=== PATIENT | female | born 1995 | race Caucasian/White ===

== ENCOUNTER 2024-08-09 12:51 | Inpatient (IN) | payer BC ==
[2024-08-09] VITALS (37 sets, daily range): BP systolic 91–152; BP diastolic 47–96; PULSE 69–125; TEMP 98–99.5
[~2024-08-09] VITALS: Ht 152.4 cm; Wt 64.1 kg
[2024-08-09] MEDS ORDERED: PRENATA1 CTB PO (13:43)
[2024-08-09] MEDS ORDERED: LR 1,000 ML IV SCH (13:45)
[2024-08-09 14:19] LABS: BASO % 0.2 % (0.0-2.0); EOS % 0.2 % (0.0-4.0); GRAN # 11.2 K/mm3 (1.4-6.5); HEMOGLOBIN 16.1 g/dl (12.5-16.0); LYMPH % 7.4 % (20.0-51.0); MEAN CELL VOLUME 92 fl (80.0-100.0); MEAN CORPUSCULAR HEMOGLOBIN 33 pg (27-31); MEAN CORPUSCULAR HGB CONC 36 g/dl (33.0-37.0); MEAN PLATELET VOLUME 12.1 fl (7.4-10.4); MONO # 0.6 K/mm3 (0.1-0.6); MONO % 4.5 % (1.7-9.3); PLATELET COUNT 140 K/mm3 (130-400); RED BLOOD COUNT 4.89 M/mm3 (4.10-5.30); REDCELL DISTRIBUTION WIDTH-CV 12.2 % (11.5-14.5)
[2024-08-09] MEDS ORDERED: ROPivacaine PF 0.2% 200 ML IV ONE (14:34)
--- NOTE | 2024-08-09 14:35 | NUR ---
PT SITTING UPRIGHT ON SIDE OF BED. CARLOS AT BEDSIDE. EFM CAT 1, VS STABLE, LR BOLUS INFUSING, PULSE OX IN PLACE. 1454 TEST DOSE PER CARLOS, MODULAR SET CREW MEMBER 1500 PT RETURNED TO WL POSITION, VS STABLE, EFM CAT 1, PT COMFORTABLE.
[2024-08-09] MEDS ORDERED: diphenhydrAMINE 50 MG/ML 1 ML VIAL IV PRN (15:15)
[2024-08-09] MEDS ORDERED: Naloxone 0.4 MG/ML VIAL IV PRN ×2 (15:15→20:30)
[2024-08-09] MEDS ORDERED: diphenhydrAMINE 25 MG CAP PO PRN (15:15)
[2024-08-09] MEDS ORDERED: ePHEDrine 50 MG/10 ML VIAL IV PRN (15:15)
[2024-08-09] MEDS ORDERED: Ondansetron 4 MG/2 ML VIAL IV PRN ×2 (15:15→20:30)
--- NOTE | 2024-08-09 15:17 | NUR ---
1517 AT BEDSIDE FOR SVE AND AROM. PT LL, SVE /-1. AROM LARGE AMOUNT OF CLEAR FLUID. PT TOLERATED WELL.
[2024-08-09] MEDS ORDERED: NS 1,000 ML IV SCH (18:00)
--- NOTE | 2024-08-09 18:00 | NUR ---
DR. BREWER AT BEDSIDE FOR SVE 10/+1 WITH CTX. CAN START PUSHING.
--- NOTE | 2024-08-09 18:20 | NUR ---
here. Discusses pushing process, getting set up for delivery.
--- NOTE | 2024-08-09 18:23 | NUR ---
First push attempt with instruction by .
--- NOTE | 2024-08-09 18:25 | NUR ---
counsels patient on possibility of vacuum assist vs primary section. Potential risks of each explained. Patient and family allowed to ask questions. Verbalize understanding.
--- NOTE | 2024-08-09 18:32 | NUR ---
Pushing efforts ceased @ 1830 per 's instruction. Resting through contractions. Will attempt to get head to rotate with position changes. Note waiting for OR to be cleaned in case needed in emergency, as noted late decelerations with pushing efforts.
--- NOTE | 2024-08-09 18:33 | NUR ---
Wedged left. LR bolus begun. O2 on @ 10 L/min per simple face mask with explanation to patient and family.
--- NOTE | 2024-08-09 18:39 | NUR ---
Wedged further to left.
--- NOTE | 2024-08-09 18:41 | NUR ---
Repositioned left lateral with right leg up in stirrup.
--- NOTE | 2024-08-09 18:55 | NUR ---
Repositioned right lateral with left leg up in stirrup.
--- NOTE | 2024-08-09 18:58 | NUR ---
here. Push attempt with instruction.
--- NOTE | 2024-08-09 19:01 | NUR ---
Nursery and charge nurse at bedside in preparation for vaccuum assisted delivery. Team notified if this does not work, will proceed to primary section.
--- NOTE | 2024-08-09 19:02 | NUR ---
Wedged to left, as noted late decelerations.
--- NOTE | 2024-08-09 19:07 | NUR ---
Jacem placed by , no pressure applied.
--- NOTE | 2024-08-09 19:10 | NUR ---
Pressure applied to vaccuum in green zone by . Pull by with pushing efforts of patient through one contraction. Pop off noted with 3rd push attempt in contraction.
[2024-08-09] MEDS ORDERED: Chloroprocaine PF 3% (30 MG/ML) 20 ML VIAL ONE (19:11)
--- NOTE | 2024-08-09 19:12 | NUR ---
Pushes without assist of vaccuum through this contraction.
--- NOTE | 2024-08-09 19:14 | NUR ---
Decision by to proceed to primary section with explanation to patient. Patient agreeable to procedure, verbalizes understanding.
--- NOTE | 2024-08-09 19:18 | NUR ---
GWYN Valdovinos, here to dose for primary section.
--- NOTE | 2024-08-09 19:23 | NUR ---
To OR per bed.
--- NOTE | 2024-08-09 19:25 | NUR ---
Time-out completed.
[2024-08-09] MEDS ORDERED: NS 20 ML IV ONE (19:29)
[2024-08-09] MEDS ORDERED: Oxytocin 10 UNITS/ML VIAL ONE (19:29)
[2024-08-09] MEDS ORDERED: Tranexamic Acid 1,000 MG in NS 100 ML IV ONE (19:30)
[2024-08-09] MEDS ORDERED: Azithromycin 500 MG in NS 250 ML IV ONE (19:30)
--- NOTE | 2024-08-09 19:38 | NUR ---
Per 's order, this bid writer pushes head up out of pelvis under sterile gown in sterile fashion.
--- NOTE | 2024-08-09 19:52 | NUR ---
Fred cheung per 's verbal order. Expiration 09-27-2028. Lot #[id number]
[2024-08-09] MEDS ORDERED: Ketorolac 30 MG/ML VIAL ONE (19:59)
[2024-08-09] MEDS ORDERED: Ondansetron 4 MG/2 ML VIAL ONE (19:59)
[2024-08-09] MEDS ORDERED: EPINEPHrine 1 MG/1 ML Ampule ONE (19:59)
[2024-08-09] MEDS ORDERED: Phenylephrine 10 MG/ML VIAL ONE (19:59)
[2024-08-09] MEDS ORDERED: dexAMETHasone 10 MG/ML VIAL ONE (20:03)
--- NOTE | 2024-08-09 20:15 | NUR ---
GWYN Valdovinos, performs ultrasound guided TAP block with explanation to patient and spouse. Verbalize understanding. US prints on chart.
[2024-08-09] MEDS ORDERED: Acetaminophen 500 MG TAB PO PRN (20:30)
[2024-08-09] MEDS ORDERED: Measles/Mumps/Rubella Virus Vaccine Live w Diluent 0.5 ML VIAL SQ SCH (20:30)
[2024-08-09] MEDS ORDERED: Magnes Hydrox (MOM) 80 MG/ML 30 ML CUP PO PRN (20:30)
[2024-08-09] MEDS ORDERED: LR 1,000 ML IV PRN (20:30)
[2024-08-09] MEDS ORDERED: Loratadine 10 MG TAB PO PRN (20:30)
[2024-08-09] MEDS ORDERED: Tdap Vaccine 0.5 ML SYRINGE IM SCH (20:30)
[2024-08-09] MEDS ORDERED: oxyCODONE 5 MG TAB PO PRN (20:30)
[2024-08-09] MEDS ORDERED: traZODone 50 MG TAB PO PRN (21:00)
[2024-08-10 00:30] VITALS: BP 118/76; PULSE 57
[2024-08-10 02:14] VITALS: BP 115/77; PULSE 56; TEMP 98.8
[2024-08-10] MEDS ORDERED: Ibuprofen 800 MG TAB PO SCH (02:21)
--- NOTE | 2024-08-10 04:00 | NUR ---
Assisted out of bed for first time post surgery. Ambulates to bathroom with two assist. Steady, timid gait noted. Encouraged to stand tall. Denies any lightheadedness, dizziness, nausea. Joanne care provided. Mesh underwear and joanne pad applied after killian catheter removed. Abdominal binder applied for support. Ambulates very short distance out into hallway before requesting to return to bed. Will allow patient to have a break from SCDs at this time. Snack of jello provided per patient request.
[2024-08-10] MEDS ORDERED: Sennosides/Docusate 8.6-50 MG TAB PO SCH (08:00)
[2024-08-10] MEDS ORDERED: Rho(D) Imm Globulin 1,500 UNITS (300 MCG)/2 ML SYRINGE IV\\IM SCH (08:30)
[2024-08-10 08:51] VITALS: BP 102/73; PULSE 75; TEMP 98
--- NOTE | 2024-08-10 09:32 | NUR ---
Initial visit; Parents thanked [employer] for offering Congratulations and God's blessings for the of their daughter. [employer] thanked family for choosing [facility].
[2024-08-10 16:45] VITALS: BP 105/70; PULSE 89; TEMP 98
[2024-08-10 21:05] VITALS: BP 105/69; PULSE 87; TEMP 98.7
[2024-08-11 08:30] VITALS: BP 105/73; PULSE 72; TEMP 98.6
[2024-08-11] MEDS ORDERED: MOTRIN 800800 MG/TAB PO (09:14)
[2024-08-11] MEDS ORDERED: ROXICODONE 55 MG/TAB PO (09:15)
--- NOTE | 2024-08-11 12:02 | NUR ---
PT CALLS CONTACT WORKER LITHOGRAPHY LIGHT AND SPOUSE REPORTS PT C/O PAIN AND NOSE BLEED. THIS NURSE ENTERS ROOM, PT CRYING, BREATHING QUICKLY, AND SMALL AMOUNT OF BLOOD IN RIGHT NARE. PT'S SPOUSE REPORTS PT IS ANXIOUS FROM INCREASED PAIN TO LEFT SIDE. FUNDUS AND BLEEDING ASSESSED, WNL. PT REPORTS TAKING XANAX BEFORE . PHYSICIAN NOTIFIED OF PT'S CONDITION. ORDERS RECEIVED.
[2024-08-11] MEDS ORDERED: diphenhydrAMINE 25 MG CAP PO ONE (12:14)
[2024-08-11] MEDS ORDERED: hydrOXYzine HCl 25 MG TAB PO PRN (12:15)
[2024-08-11] MEDS ORDERED: diphenhydrAMINE 50 MG CAP PO PRN (12:15)
--- NOTE | 2024-08-11 12:15 | NUR ---
MEDICATIONS ADMINISTERED PER ORDERS. PT EXPRESSES CONCERN ABOUT NEEDING TO FEED BABY SOON. THIS NURSE ENCOURAGES PT TO TAKE SOME TIME TO RELAX AND LET THE MEDICATIONS BECOME EFFECTIVE WHILE BABY IS SLEEPING. PT VERBALIZES UNDERSTANDING OF PLAN.
--- NOTE | 2024-08-11 12:45 | NUR ---
BABY BACK IN MOTHER'S ROOM. PT REPORTS FEELING MUCH BETTER, RESPIRATIONS MORE RELAXED AND STEADY. THIS NURSE ASSISTS WITH GETTING BABY TO LATCH AND REVIEWS OPTIONS FOR SUPPLEMENTATION IF PT FEELS IT IS NECESSARY.
--- NOTE | 2024-08-11 14:04 | NUR ---
PER PT AND FOB THEY ARE REQUESTING TO DC. PT RECENTLY FEELING ANXIOUS AND TEARFUL, BUT HAS SINCE GAINED CONFIDENCE AFTER STAFF EDUCATION ON AND A SUCCESSFUL 35 MINUTE INDEPENDENT SESSION. PT HAS HAD TWO LARGE VOIDS AND ALSO REPORTS SIGNIFICANT PAIN RELIEF FROM EARLIER. STATES "I THINK MY BLADDER WAS SO FULL IT WAS PUSHING ON MY SORE SPOTS." WILL CONTINUE WITH DC PROCESS PER ORDER AND PT REQUEST.
--- NOTE | 2024-08-11 15:15 | NUR ---
ALL DC PAPERWORK AND INSTRUCTIONS REVIEWED AND UNDERSTOOD BY PT AND FOB. INFANT PLACED SECURELY IN CARSEAT, STRAPS ASSESSED BY THIS RN AND APPROPRIATE. ALL DC FOLLOW UP APPOINTMENTS DISCUSSED AND PHONE NUMBERS PROVIDED. PT AND FOB DENY FURTHER QUESTIONS OR CONCERNS AT THIS TIME. DC'D FROM UNIT VIA WHEELCHAIR IN STABLE CONDITION AT THIS TIME.
== END 2024-08-11 15:15 | disposition home or self-care (01) | DRG 788 ==
LOC: LDRO 12:51 → LDR 13:33 → OB 13:33
PROVIDERS: ADMIT Obstetrics & Gynecology
PROC: 10D00Z1 Extraction of Products of Conception, Low, Open Approach (ICD-10-PCS; principal; 2024-08-09)
PROC: 10907ZC Drainage of Amniotic Fluid, Therapeutic from Products of Conception, Via Natural or Artificial Opening (ICD-10-PCS; 2024-08-09)
DX: O99.344 Other mental disorders complicating childbirth (principal); O99.892 Other specified diseases and conditions complicating childbirth; O99.72 Diseases of the skin and subcutaneous tissue complicating childbirth; O99.52 Diseases of the respiratory system complicating childbirth; F41.9 Anxiety disorder, unspecified; H54.7 Unspecified visual loss; J45.909 Unspecified asthma, uncomplicated; O66.5 Attempted application of vacuum extractor and forceps; Z86.16 Personal history of COVID-19; Z37.0 Single live birth; Z3A.39 39 weeks gestation of pregnancy; O26.893 Other specified pregnancy related conditions, third trimester; O76 Abnormality in fetal heart rate and rhythm complicating labor and delivery; Z67.11 Type A blood, Rh negative
CPT/HCPCS: J0171; J0456; J0665; J0690; J1100; J1885; J2371; J2401; J2405; J2590; J2791; J2795; J7050; J7120